=== PATIENT | female | born 1950 | race Caucasian/White ===

== ENCOUNTER 2021-04-01 | Outpatient (CLI) | payer MEDICARE, OTHER | END 2021-04-01 09:23 | disposition home or self-care (01) ==

== ENCOUNTER → 2022-01-03 | Day surgery (SDC) | payer MEDICARE, OTHER | END | disposition home or self-care (01) | LOC: SDC 11:43 | PROVIDERS: ATTEND Internal Medicine Gastroenterology | DX: R42 Dizziness and giddiness (principal); R11.0 Nausea; R13.10 Dysphagia, unspecified; Z86.010 Personal history of colon polyps | CPT/HCPCS: 91010; 91034 ==